=== PATIENT | female | born 1995 | race Hispanic/Latino ===

== ENCOUNTER → 2020-11-23 | Outpatient (CLI) | payer OTHER ==
[~2020-11-23] MED LIST: COVID-19 VACC, MRNA(MODERNA)/PF 100 MCG/0.5 ML VIAL IM ONE
== END | disposition home or self-care (01) ==
LOC: VACCPMC 16:21
DX: Z23 Encounter for immunization (principal); Z20.822 Contact with and (suspected) exposure to COVID-19
CPT/HCPCS: 91301

== ENCOUNTER → 2020-12-20 | Outpatient (CLI) | payer OTHER | END | disposition home or self-care (01) | LOC: VACCPMC 08:50 | DX: Z23 Encounter for immunization (principal); Z20.822 Contact with and (suspected) exposure to COVID-19 ==

== ENCOUNTER 2021-03-25 20:28 | Emergency (ER) | payer OTHER ==
[~2021-03-25] VITALS: Ht 149.9 cm; Wt 56.7 kg
[2021-03-25] MEDS ORDERED: PREDNISONE20 MG PO (21:32)
== END 2021-03-25 21:45 | disposition home or self-care (01) ==
LOC: FSED 21:10
DX: J02.9 Acute pharyngitis, unspecified (principal)
CPT/HCPCS: 83518; 99282